=== PATIENT | male | born 1960 | race Asian ===

== ENCOUNTER 2023-01-24 07:17 | Outpatient (CLI) | payer BC | END 2023-01-24 07:18 | disposition home or self-care (01) | LOC: CSHCT 07:17 | PROVIDERS: ATTEND Thoracic Surgery (Cardiothoracic Vascular Surgery) | DX: I71.22 Aneurysm of the aortic arch, without rupture (principal); I71.011 Dissection of aortic arch; I71.010 Dissection of ascending aorta; Z98.890 Other specified postprocedural states | CPT/HCPCS: 71275; 82565 ==

== ENCOUNTER 2023-08-07 07:26 | Outpatient (CLI) | payer BC ==
[2023-08-07] MEDS ORDERED: Iopamidol 370 76% 100 ML VIAL ONE (08:55)
== END 2023-08-07 07:27 | disposition home or self-care (01) ==
LOC: CSHCT 07:26
PROVIDERS: ATTEND Family Medicine
DX: I71.22 Aneurysm of the aortic arch, without rupture (principal); Z98.890 Other specified postprocedural states; I71.011 Dissection of aortic arch; I71.012 Dissection of descending thoracic aorta; I71.02 Dissection of abdominal aorta; I77.71 Dissection of carotid artery; I51.7 Cardiomegaly
CPT/HCPCS: 71275; 82565; Q9967